=== PATIENT | female | born 1970 | race Caucasian/White ===

== ENCOUNTER 2024-10-06 09:45 | Emergency (ER) | payer BC, OTHER ==
[~2024-10-06] VITALS: Ht 160 cm; Wt 85.8 kg
[2024-10-06 09:47] VITALS: BP 162/89; TEMP 97.2; O2SAT 98
[2024-10-06] MEDS ORDERED: AMOX875T2 PO (10:28)
[2024-10-06] MEDS ORDERED: IBUP-1022 PO (10:28)
== END 2024-10-06 10:32 | disposition home or self-care (01) ==
LOC: M ED 09:45
DX: K02.9 Dental caries, unspecified (principal); K08.89 Other specified disorders of teeth and supporting structures; Z79.2 Long term (current) use of antibiotics; Z79.1 Long term (current) use of non-steroidal anti-inflammatories (NSAID)